=== PATIENT | female | born 1965 | race Caucasian/White ===

== ENCOUNTER 2017-07-31 01:49 | Emergency (ER) | payer BC ==
[2017-07-31] MEDS ORDERED: Propofol 200 MG/20 ML SDV IV ONE (01:50)
--- NOTE | 2017-07-31 01:56 | EDM.PDOC ---
ED HPI GENERAL MEDICAL PROBLEM - General Chief Complaint: Lower Extremity Injury/Pain Stated Complaint: AMBULANCE Time Seen by Provider: 07/31/17 01:54 Source of Information: Reports: Patient History Limitations: Reports: No Limitations - History of Present Illness INITIAL COMMENTS - FREE TEXT/NARRATIVE: twisted while going up steps Right Ankle Pain Score (Numeric/FACES): 3 - Related Data Allergies Allergy/AdvReac Type Severity Reaction Status Date / Time No Known Allergies Allergy Verified 07/31/17 02:03 Home Meds: Home Meds Aspirin [Ecotrin] 325 mg PO DAILY 05/14/16 [History] Calcium Carbonate [Calcium] 1,500 mg PO DAILY 05/14/16 [History] Cyanocobalamin (Vitamin B-12) [B-12] 1,000 mcg PO DAILY 05/14/16 [History] Ferrous Sulfate, Dried [Iron] 1 tab PO DAILY 05/14/16 [History] L.acid/L.casei/B.bif/B.judit/Fos [Probiotic Blend Capsule] 1 tab PO DAILY [History] Lactose-Reduced Food [Nutritional Supplement Plus] 0.5 pint PO DAILY 05/14/16 [ History] Past Medical History HEENT History: Reports: None Cardiovascular History: Reports: High Cholesterol, Other (See Below) Other Cardiovascular History: PATIENT DENIES HIGH CHOLESTEROL Respiratory History: Reports: None Gastrointestinal History: Reports: None Genitourinary History: Reports: None 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 Neurological History: Reports: None Psychiatric History: Reports: None Endocrine/Metabolic History: Reports: Obesity/BMI 30+ Hematologic History: Reports: None Immunologic History: Reports: None Oncologic (Cancer) History: Reports: None Dermatologic History: Reports: Other (See Below) Other Dermatologic History: Hx of genital warts. - Infectious Disease History Infectious Disease History: Reports: Chicken Pox, Measles - Past Surgical History Head Surgeries/Procedures: Reports: None HEENT Surgical History: Reports: None Cardiovascular Surgical History: Reports: None Respiratory Surgical History: Reports: None GI Surgical History: Reports: None Female Surgical History: Reports: None Endocrine Surgical History: Reports: None Neurological Surgical History: Reports: None Musculoskeletal Surgical History: Reports: None Dermatological Surgical History: Reports: None Social & Family History - Family History Oncologic: Reports: Colon - Tobacco Use Smoking Status *Q: Former Smoker - Caffeine Use Caffeine Use: Reports: Coffee Other Caffeine Use: AVERAGE 4-5 CUPS DAILY - Recreational Drug Use Recreational Drug Use: No Drug Use in Last 12 Months: No Review of Systems - Review of Systems Review Of Systems: ROS reveals no pertinent complaints other than HPI. ED EXAM, GENERAL - Physical Exam Exam: See Below Exam Limited By: No Limitations General Appearance: Alert, WD/WN, Mild Distress, Other (discomfort) Ears: Hearing Grossly Normal Throat/Mouth: Normal Voice, No Airway Compromise Head: Atraumatic Neck: Non-Tender, Full Range of Motion Respiratory/Chest: No Respiratory Distress Cardiovascular: Regular Rate, Rhythm GI/Abdominal: Soft, Non-Tender Extremities: Limited Range of Motion, Other (right ankle swollen, tender R/P,NV wnl, gait unable) Neurological: Alert, Oriented, Normal Cognition, No Motor/Sensory Deficits Psychiatric: Normal Affect, Normal Mood Skin Exam: Warm, Dry, Normal Color Lymphatic: No Adenopathy ED TRAUMA EXTREMITY PROCEDURES - Splinting Right Lower Extremity Splint Site: right ankle Pre-Procedure NV Status: Normal Post-Procedure NV Status: Normal Splint Material: Fiberglass Splint Design: Stirrup Applied & Form Fitted By: Provider Provider Post-Splint Application NV Check: NV Status Normal, Good Position Complications: No Course - Vital Signs Last Recorded V/S: Last Vital Signs Temp 36.6 C 07/31/17 04:00 Pulse 95 07/31/17 04:00 Resp 17 07/31/17 04:00 BP 100/70 07/31/17 04:00 Pulse Ox 96 07/31/17 04:00 - Orders/Labs/Meds Orders: Active Orders 24 hr Category Date Time Status Ankle 2V Rt [CR] Urgent Exams 07/31/17 01:53 Taken Meds: Medications Discontinued Medications Generic Name Dose Route Start Last Admin Trade Name Freq PRN Reason Stop Dose Admin Hydrocodone Bitart/Acetaminophen Confirm 07/31/17 04:29 Swiss 325-10 Mg Administered 07/31/17 04:30 Dose 1 tab .ROUTE .STK-MED ONE Sodium Chloride 1,000 mls @ 999 mls/hr 07/31/17 03:42 07/31/17 03:50 Normal Saline IV 07/31/17 04:42 999 mls/hr .BOLUS ONE Administration - Re-Assessments/Exams Free Text/Narrative Re-Assessment/Exam: 07/31/17 03:28 results discussed with pt. case discussed with Dr Perea @ ortho who recommended [id number]-elevate and f/u mid week for surgery. pt concurred but request anaesthesia. Departure - Departure Time of Disposition: 04:43 Disposition: Home, Self-Care 01 Condition: Good Clinical Impression: Fracture of ankle Qualifiers: Encounter type: initial encounter Fracture type: closed Laterality: right Qualified Code(s): S82.891A - Other fracture of right lower leg, initial encounter for closed fracture - Discharge Information Instructions: Ankle Fracture, [id number] Forms: ED Department Discharge Additional Instructions: 1) wear splint and use crutches 2) elevate leg as much as possible 3) call for ORTHOPEDIC OFFICE TUESDAY FOR APPOINTMENT ON TUESDAY. [phone] 4) return if there is any change or concern rx given; vicodin 5/325mg bid prn x 12 - My Orders Last 24 Hours: My Active Orders 07/31/17 01:53 Ankle 2V Rt [CR] Urgent - Assessment/Plan Last 24 Hours: My Active Orders 07/31/17 01:53 Ankle 2V Rt [CR] Urgent
[2017-07-31 02:01] VITALS: BP 100/70
[2017-07-31] MEDS ORDERED: Sodium Chloride 0.9% 1,000 ML IV ONE (03:42)
[2017-07-31] MEDS ORDERED: Acetaminophen/HYDROcodone 325-10 MG Tab ONE (04:29)
== END 2017-07-31 04:41 | disposition home or self-care (01) ==
LOC: DL.ED 01:49
DX: S82.431A Displaced oblique fracture of shaft of right fibula, initial encounter for closed fracture (principal); E66.9 Obesity, unspecified; Z79.899 Other long term (current) drug therapy; Z79.82 Long term (current) use of aspirin; Z87.891 Personal history of nicotine dependence; W10.9XXA Fall (on) (from) unspecified stairs and steps, initial encounter
CPT/HCPCS: 29515; 73600; 99285; J2704; J7030; 99152